=== PATIENT | female | born 1945 | race African-American/Black ===

== ENCOUNTER 2018-10-07 08:42 | Emergency (ER) | payer OTHER, SELFPAY ==
[2018-10-07 08:43] VITALS: BP 167/106; PULSE 76; RESP 16; TEMP 36.6; O2SAT 96; BMI 32.4
--- NOTE | 2018-10-07 08:55 | RAD_ITS ---
STUDY: X-RAY - RIGHT ANKLE REASON FOR EXAM: Female, 72 years old. Pain following a fall. TECHNIQUE: 3 view(s) of the ankle. COMPARISON: None. FINDINGS: Normal visualized distal tibia and fibula. Normal medial and lateral malleoli. Normal tibiotalar articulation and ankle mortise. Normal visualized talus and calcaneus. Degenerative changes of the distal tarsal bones. Soft tissue swelling. RAD/Ankle min 3 Views IMPRESSION: Degenerative changes. Soft tissue swelling. Electronically Signed: Hilario Donnelly, at 10:06 EDT , Service support ,
--- NOTE | 2018-10-07 08:55 | RAD_ITS ---
STUDY: X-RAY - RIGHT KNEE REASON FOR EXAM: Female, 72 years old. Pain following a fall. TECHNIQUE: 4 view(s) of the knee. COMPARISON: None. FINDINGS: Normal visualized distal femur. Normal visualized proximal tibia and fibula. Normal proximal tibiofibular articulation. There is severe degenerative arthrosis of the medial femorotibial compartment with severe joint space narrowing. Normal lateral femorotibial compartment. There is severe degenerative arthrosis of the patellofemoral articulation. Small joint effusion. RAD/Knee 4 or More Views IMPRESSION: Degenerative arthrosis. Small joint effusion. Electronically Signed: Hilario Donnelly, at 10:04 EDT , Service support ,
--- NOTE | 2018-10-07 09:04 | ED.VISSUMM ---
- ER Visit Summary Date of Service: 10/07/18 Chief Complaint: [Right leg injury] History of Present Illness: The patient is a 72 F [presents to the emergency department complaint of an injury to her right leg that occurred 2 days ago. Patient states that she was taking a basket of close down the steps when she tripped over a sheet and she stumbled trying to brace herself with her right leg. Patient did not actually fall down. Patient not complaining of continued pain in the back of her leg, knee, and ankle. Patient is able to ambulate. Patient states the pain is worse with sitting actually better when she is up and walking. She denies any head or neck pain. She denies any chest pain.] Physical Examination: [HEENT-PERRLA, EOMI. Cranial nerves II through XII grossly intact. TMs clear. Mucous membranes moist. No adenopathy. Cardiovascular-regular rate and rhythm without murmur or ectopy Lungs-clear to auscultation, chest wall stable without crepitus or subcu emphysema Abdomen-normoactive bowel sounds, soft, nontender, no rebound or rigidity, no peritoneal signs. Extremities-intact ?4, normal range of motion, normal pulses, atraumatic. Right knee-patient does have a small joint effusion noted. Ligamentously stable. Mild tenderness over the medial lateral joint lines. Patient does have some tenderness to the right hamstrings diffusely. Right ankle-patient has mild diffuse tenderness. No erythema or warmth noted. There is no ecchymosis or bruising. She is neurovascular intact.] Test Results: [X-rays of the right knee showed a small effusion and degenerative changes. X-rays of the right ankle show some soft tissue swelling and degenerative changes but no fractures.] Emergency Department Course and Treatment: [Patient was given an Jens wrap for her knee. Patient does not want an air splint. Patient does not feel like her knee is unstable and does not feel like it is going to give out.] Treatment Plan: [Patient will be given a prescription for OxyIR for pain. Follow-up with her primary care physician in 5 to 7 days. If symptoms do not improve or worsen she may need further imaging such as possibly MRI to evaluate for ligamentous or meniscal injury.] Disposition: [Discharged home in stable condition] Impression: [Right knee sprain Right ankle sprain] This note was generated with Dragon dictation software. It may contain incorrect words, spelling, and punctuation that were not noted in review of the chart prior to signing ED Disposition - Plan for ED Patient: Referrals: Kelsi Beach MD [Primary Care Provider] -
--- NOTE | 2018-10-07 10:28 | ED.DEP ---
ED Disposition - Plan for ED Patient: Instructions: ED Sprain Ankle W X Ray, ED Sprain Knee Prescriptions: Oxycodone [Oxyir] 5 mg PO Q4H PRN PRN 3 Days #10 tab PRN Reason: Pain Referrals: Kelsi Beach MD [Primary Care Provider] - 5-7 Days
[2018-10-07 10:53] VITALS: PULSE 71; RESP 16; O2SAT 98
== END 2018-10-07 10:55 | disposition home or self-care (01) ==
PROVIDERS: Emergency Provider Emergency Medicine; Family Provider Internal Medicine; PCP Internal Medicine
DX: S83.91XA Sprain of unspecified site of right knee, initial encounter (principal); S93.401A Sprain of unspecified ligament of right ankle, initial encounter; W18.09XA Striking against other object with subsequent fall, initial encounter; Y93.9 Activity, unspecified; Y92.89 Other specified places as the place of occurrence of the external cause; Y99.9 Unspecified external cause status
CPT/HCPCS: 73564; 73610; 99282

== ENCOUNTER → 2019-12-07 09:15 | Outpatient (CLI) | payer MEDICARE, SELFPAY ==
--- NOTE | 2019-12-07 09:20 | US_ITS ---
STUDY: ABDOMINAL ULTRASOUND - RIGHT UPPER QUADRANT REASON FOR VISIT: Female, 73 years old elevated liver enzymes TECHNIQUE: Ultrasound evaluation of the right upper quadrant was performed with real-time and static sahu-scale imaging. TECHNICAL QUALITY: Limited. Examination limited by bowel gas. COMPARISON: None. FINDINGS: Liver: The liver measures 15.9 cm. There is normal echogenicity of the liver. The bile ducts are within normal limits. There is hepatic color flow. The direction of portal flow is hepatopetal. There is no demonstrated mass lesion. Gallbladder: The patient is status post cholecystectomy. Common Bile Duct (C.B.D.): The common bile duct measures 10 mm. Pancreas: Normal size of the head, body and tail of the pancreas. There is normal echogenicity of the pancreas. There is no demonstrated pancreatic mass or cyst. Right Kidney: Normal size of the right kidney. The right kidney measures 9.9 cm. 1.5 The right cortex measures cm. There is no demonstrated renal mass or cyst. There is no right hydronephrosis. US/Liver IMPRESSION: Distended common bile measuring 10 mm. This may simply be related to patient''s age and cholecystectomy. Mild fatty liver. Electronically Signed: Leonides Contreras MD at 19:33 EDT , Service support ,
== END ==
PROVIDERS: PCP Internal Medicine; Referring Provider Nurse Practitioner; Visit Provider Nurse Practitioner
DX: R74.8 Abnormal levels of other serum enzymes (principal)
CPT/HCPCS: 76705

== ENCOUNTER → 2019-12-10 10:41 | Outpatient (CLI) | payer MEDICARE, SELFPAY ==
--- NOTE | 2019-12-10 10:42 | BI_ITS ---
MAMMOGRAPHY - BILATERAL SCREENING REASON FOR EXAM: Female, 73 years old. Routine annual screening examination. PERTINENT HISTORY: Non-contributory. TECHNIQUE: Digital bilateral breast misty (3D mammographic acquisition) in the CC and MLO projections. 2-D mediolateral oblique (MLO) and craniocaudad (CC) views of both breasts were obtained. CAD: Full Field Digital Mammography with Computer Added Detection was performed. COMPARISON: Comparison is made with prior examination dated 03/17/2014. FINDINGS: Breast Composition: There are scattered areas of fibroglandular density. There are no dominant masses or suspicious calcifications. Stable benign-appearing bilateral axillary lymph nodes. Stable appearance of the asymmetry of breast tissue with more breast tissue is seen in the retroareolar region of the left breast. Stable retroareolar thickening bilaterally. No other significant abnormalities are identified. There has been no significant change since the prior study. BI/SCREEN MAMM (CAD) W/MISTY BILAT IMPRESSION: Stable bilateral screening mammogram. Yearly follow-up mammogram recommended. (A) ASSESSMENT CATEGORY: BIRADS Category 2: Benign. A letter regarding these results will be sent to the patient by the facility within 30 days. Approximately 10% of breast cancers are not detected by mammography. A normal mammogram should not delay biopsy of a clinically suspicious abnormality. [id number] Electronically Signed: Hilario Donnelly, at 12:44 EDT , Service support ,
--- NOTE | 2019-12-10 10:46 | BD_ITS ---
STUDY: DUAL ENERGY X-RAY ABSORPTIOMETRY / DXA REASON FOR EXAM: Female, 73 years old. 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 COMPARISON: Comparison is made with prior examination of 03/17/2014. FINDINGS: Lumbar Spine (L1-L4): g/cm2 (1.195) / T-score (0.2) / Z-score (1.3) Findings are suggestive of normal bone density with a low fracture risk. Left Femur Total: g/cm2 (1.019) / T-score (0.1) / Z-score (0.7) Left Femoral Neck: g/cm2 (0.939) / T-score (-0.7) / Z-score (0.2) Right Femur Total: g/cm2 (1.012) / T-score (0.0) / Z-score (0.6) Right Femoral Neck: g/cm2 (1.020) / T-score (-0.1) / Z-score (0.7) The T-Scores on the most recent prior examination were: Lumbar Spine (L1-L4): There has been improvement of bone density since the previous examination. Left Femur Total: which represents a worsening of 4.6%. Right Femur Total: which represents an improvement of 1.1%. BD/Dexa Bone Density Study IMPRESSION: The patient is considered normal as outlined below according to World Luke Organization (WHO) criteria with a low fracture risk. There has been improvement of bone density since the previous examination. Reference Information: The T-score is the number of standard deviations above or below the standard which is normal for young adults at their peak bone mineral density. The World Health Organization (WHO) interprets the T-scores as follows: Above -1 Normal bone density Between -1 and -2.5 Osteopenia Equal to / or below -2.5 Osteoporosis As a practical clinical guideline, osteopenia may be graded as follows: Mild -1 through -1.5 Moderate -1.6 through -2.0 Severe -2.1 through -2.4 The Z-score is the number of standard deviations above or below age-matched controls. A Z-score of less than -1.5 would be considered abnormal. References: 1. NIH Osteoporosis and Related Bone Diseases http://www.osteo.org 2. International Society for Clinical Densitometry http://www.iscd.org 3. National Osteoporosis Foundation http://www.nof.org Electronically Signed: Hilario Donnelly, at 15:23 EDT , Service support ,
== END ==
PROVIDERS: PCP Internal Medicine; Referring Provider Nurse Practitioner; Visit Provider Nurse Practitioner
DX: Z12.31 Encounter for screening mammogram for malignant neoplasm of breast (principal); Z78.0 Asymptomatic menopausal state
CPT/HCPCS: 77063; 77067; 77080

== ENCOUNTER → 2020-04-20 12:04 | Outpatient (CLI) | payer MEDICARE, SELFPAY ==
[2020-04-15 13:22] VITALS: BMI 32.4
[2020-04-20 12:44] LABS: Potassium 4.4 mmol/L (3.5-5.1)
== END ==
PROVIDERS: PCP Internal Medicine; Visit Provider Nurse Practitioner
DX: E87.5 Hyperkalemia (principal)
CPT/HCPCS: 84132

== ENCOUNTER 2020-10-27 12:00 | Outpatient (RCR) | payer MEDICARE, SELFPAY ==
[2020-04-15 13:22] VITALS: BMI 32.4
--- NOTE | 2020-07-29 14:19 | HP.PTEVAL_ITS ---
Patient's Visit Information CHAUNCEY CURRIE is a 74 year old F referred to Physical Therapy by DIANN Green with a diagnosis of SCIATICA. Date of Evaluation: 07/29/20 Physical Therapist: Lala Malone, PT, Cert MDT - Visit Plan Frequency: 2-3x /Week Duration: 4-6 Weeks Plan: NO OVERHEAD PRESS. NO SUPINE LEG PRESS OR SHUTTLE LEG PRESS. US, POSTURE CORRECTION/STRENGTHENING, INSTRUCTION IN APPROPRIATE BODY MECHANICS AND ACTIVITY MODIFICATIONS. DLS STARTING WITH A NEUTRAL SPINE PROGRESSING ROM TOLERATED. ALISON LE ROM, STRETCHING AND STRENGTHENING. HEP INSTRUCTION. - Subjective Work/Leisure: RETIRED. Disability: NO. Present symptoms: RIGHT LOW BACK, RIGHT BUTTOCK, R THIGH AND CALF. LEFT LEG AND ANKLE ALSO GETS TIGHT. RIGHT LE PAIN, NUMBNESS AND TINGLING TO THE FOOT AND TOES. Present since: NOVEMBER 2019. Pain Scale: WORST 10/10, LEAST 1/10. Currently: 05/22. Commenced as a result of: NO APPARENT REASON OTHER THAN PHYSICAL ACTIVITY LIKE GARDENING. LIFTING HEAVY SOIL AND POTTED PLANTS. ALSO PACKING TO MOVE FEB 11 2020. Symptoms at onset: ACHY LOW BACK. Worse: TIGHT SOCK, SOMETIMES SHEET, GOING UP AND DOWN STEPS, LIFTING, STRETCHING, TRYING TO REMOVE WALLPAPER, ANY OVER-HEAD REACHING, SITTING IN CERTAIN CHAIRS. WALKING. GROCERY SHOPPING. Better: TYLONOL, HOT SHOWER, ICE PACK, CHANGE OF POSITION, INJECTION BY RODRIGO HAHN Saturday07/26/20 - TORODOL - HELPED A LOT. Disturbed sleep: YES. Previous history/Previous treatment: UNREMARKABLE PRIOR TO NOVEMBER 2019. Treatment this episode: SHOT OF TORODOL SATURDAY, PREDNISONE X 3 - ON 3RD ROUND NOW, FLEXERIL, TYLONOL, PT CONSULT. Coughing/sneezing/straining: NEGATIVE. Gait: UNEVEN STRIDE, DECREASED CADANCE, TIME LIMITED, DISTANCE LIMITED, I HOBBLE. I CAN'T WALK AND THAT IS ONE OF MY MOST FAVORITE FORMS OF EX. Difficulty initiating urinatin: NO. Accidents: NO. Unexplained weight loss: NO. Imaging: STUDY: X-RAY - LUMBAR SPINE. REASON FOR EXAM: Female, 74 years old. LBP WITH RLE PARESTHESIAS. TECHNIQUE: 2 view(s) of the lumbar spine were obtained. COMPARISON: None. . FINDINGS: Normal lumbar lordosis. There is no substantial scoliosis. There is a. normal alignment of the vertebrae. There is multilevel endplate spondylosis of the lumbar vertebrae. There is. multi-level degenerative disc disease with multi- level disc space. narrowing. Facet joint osteoarthritis. There is atherosclerotic calcification of the abdominal aorta without a. demonstrated aneurysm. . RAD/Lumbar Spine 2 or 3 Views. IMPRESSION: Degenerative changes of the spine, as detailed above. . Electronically Signed: Hilario Donnelly,. at 14:06 EST. PMH: HTN. Recent major surgery: NONE - Objective Sitting/Standing Posture: POOR. Lordosis: REDUCED. Lateral shift: NO. Relevant shift: N/A. Active Correction of posture: WORSE. Other Observations: INDEP GAIT INTO PT WITHOUT ANY ASSISTIVE DEVICES BUT DECREASED CADANCE, DECREASED ALISON STRIDE LENGTH AND LIMP ON RIGHT LE. Motor deficit: ALISON LE'S GROSSLY 5/5 WITH MMT'ING EXCEPT HIPS GRADED 4/5. Sensory deficit: ALISON LE LIGHT TOUCH SENSATION IS INTACT AND SYMMETRICAL WITH TESTING TODAY. ROM deficit: TIGHT ALISON LE HIP FLEXORS, HS'S AND GASTROC SOLEUS COMPLEX'S. Reflexes: UNABLE TO ELICIT ALISON LE'S. Dural Signs: NEGATIVE ALISON LE'S. Lumbar mvmt loss: flex - NIL. ext - RAFAEL. R SG - MIN. L SG - MIN. Core strength: POOR. Palpation: NO ACUTE TENDERNESS WITH PALPATION OF LUMBAR SPINE, SACRAL REGION OR ALISON HIPS. TREATMENT: NEUROMUSCULAR REEDUCATION - RETRAINING OF MVMT AND POSTURE FOR SITTING, LYING AND STANDING ACTIVITIES. - Goals Goal 1:: DECREASE C/O LOW BACK AND ALISON LE SX'S. Goal Time Frame: 4-6 Weeks Goal 2:: IMPROVE LIFTING, WALKING, SITTING, STANDING, SLEEP, SOCIAL LIFE, TRAVEL AND HOMEMAKING FUNCTION. Goal Time Frame: 4-6 Weeks Goal 3:: INSTRUCT IN PROPHYLAXIS Goal Time Frame: 4-6 Weeks - Anticipated Interventions Patient/Client Instruction: Educate patient on: Condition, Plan of Care, Risk Factors, Benefits of Fitness Program For the Purpose of:: To improve self management Therapeutic Exercise to Include: Strength training, Body mechanics, Postural training, Flexibilty training, Neuromotor development, In an aquatic setting, Dynamic Lumbar Stabilization For the Purpose of:: To decrease pain, To improve muscle performance and motor function, To increase tolerance to activity/condition/position, To improve ability of physical actions for home/community/work/leisure Cryotherapy (ice pack, ice massage): Yes Thermo therapy (hot pack): Yes Ultrasound (thermal/non thermal): Yes For the Purpose of:: To decrease pain, To improve nutrient delivery to tissue Thank you for the opportunity to evaluate your patient. For Medicare and Medicare HMO plans, please review the plan of care and approve it. It will need to be FAXED BACK to us at [phone] for Medicare purposes. For Medicare only, by signing this I certify the plan of care. Please let me know if there are questions or concerns regarding this plan of care. Physician Signature: Date:
--- NOTE | 2020-08-21 14:40 | HP.PTREVAL_ITS ---
Kell Ye, HEALTHCARE SALES REPRESENTATIVE-C, It has been my pleasure to treat CHAUNCEY CURRIE over the last 10 visits for SCIATICA. Please see the progress note below for an update on the physical therapy plan of care! Subjective: PATIENT REPORTS THE EX'S ARE HELPING A GREAT DEAL. PATIENT REPORTS SHE NOW HAS LIMITED PAIN. STATES LONG SHE IS CAREFUL SHE CAN CONTROL THE PAIN. FREQUENT CHANGE OF ACTIVITY HELPS. SLEEPING BETTER. PATIENT REPORTS SHE CAN DO ADL'S BETTER NOW LIKE GETTING IN AND OUT OF BED, CAR AND CHAIR. BRACING IN CORE MUSCLES WITH MOVEMENT HELPS. PATIENT REPORTS SHE IS JUST STARTING TO TURN THE CORNER AND SHE DOES NOT YET HAVE THE CONFIDENCE TO CONTINUE ON HER OWN. Objective/Function: PATIENT WAS SEEN TODAY FOR RE-ASSESSMENT OF PROGRESS TOWARD THE SET PT GOALS AND THE NEED FOR FURTHER PHYSICAL THERAPY VS READINESS FOR DISCHARGE. SHE IS A GOOD CANDIDATE TO CONTINUE PT BASED ON PROGRESS MADE AND ROOM FOR FURTHER IMPROVEMENT. PATIENT IS AGREEABLE. UPON EXAM TODAY: INDEP GAIT INTO PT WITHOUT ANY ASSISTIVE DEVICES BUT DECREASED CADANCE, DECREASED ALISON STRIDE LENGTH AND LIMP ON RIGHT LE. Motor deficit: ALISON LE'S GROSSLY 5/5 WITH MMT'ING EXCEPT HIPS GRADED 4/5. Sensory deficit: ALISON LE LIGHT TOUCH SENSATION IS INTACT AND SYMMETRICAL WITH TESTING TODAY. ROM deficit: TIGHT ALISON LE HIP FLEXORS, HS'S AND GASTROC SOLEUS COMPLEX'S. Dural Signs: NEGATIVE ALISON LE'S. Lumbar mvmt loss: flex - NIL. ext - MOD. R SG - MIN. L SG - MIN. Core strength: POOR. Palpation: NO ACUTE TENDERNESS WITH PALPATION OF LUMBAR SPINE, SACRAL REGION OR ALISON HIPS. Plan Plan: CONTINUE PT. NO OVERHEAD PRESS. NO SUPINE LEG PRESS OR SHUTTLE LEG PRESS. US, POSTURE CORRECTION/STRENGTHENING, INSTRUCTION IN APPROPRIATE BODY MECHANICS AND ACTIVITY MODIFICATIONS. DLS STARTING WITH A NEUTRAL SPINE PROGRESSING ROM TOLERATED. ALISON LE ROM, STRETCHING AND STRENGTHENING. HEP INSTRUCTION. Goals Goal 1:: DECREASE C/O LOW BACK AND ALISON LE SX'S. Goal Time Frame: 4-6 Weeks Goal Progress: Progressing Goal 2:: IMPROVE LIFTING, WALKING, SITTING, STANDING, SLEEP, SOCIAL LIFE, TRAVEL AND HOMEMAKING FUNCTION. Goal Time Frame: 4-6 Weeks Goal Progress: Progressing Goal 3:: INSTRUCT IN PROPHYLAXIS Goal Time Frame: 4-6 Weeks Goal Progress: Progressing Anticipated Interventions Patient/Client Instruction: Educate patient on: Condition, Plan of Care, Risk Factors, Benefits of Fitness Program For the Purpose of:: To improve self management Therapeutic Exercise to Include: Strength training, Body mechanics, Postural training, Flexibilty training, Neuromotor development, In an aquatic setting, Dynamic Lumbar Stabilization For the Purpose of:: To decrease pain, To improve muscle performance and motor function, To increase tolerance to activity/condition/position, To improve ability of physical actions for home/community/work/leisure Cryotherapy (ice pack, ice massage): Yes Thermo therapy (hot pack): Yes Ultrasound (thermal/non thermal): Yes For the Purpose of:: To decrease pain, To improve nutrient delivery to tissue Please do not hesitate to contact me at [phone] by phone or if you have questions or concerns regarding this new plan of care! Sincerely, Lala Malone, PT, Cert MDT
--- NOTE | 2020-09-23 12:47 | HP.PTREVAL_ITS ---
Kell Ye, SUPERVISOR METAL PLACING-C, It has been my pleasure to treat CHAUNCEY CURRIE over the last 20 visits for SCIATICA. Please see the progress note below for an update on the physical therapy plan of care! Subjective: PATIENT REPORTS THAT SHE VENTURES OUT MORE AND ATTEMPTS TO DO MORE SHE REALIZES THIS IS GOING TO BE A SLOW PROCESS. STATES SHE FEELS 10 TIMES BETTER THAN BEFORE SHE STARTED PT THOUGH. PATIENT REPORTS HER BALANCE IS BETTER AND SHE ISN'T LIMPING WHEN SHE WALKS. PATIENT REPORTS SHE IS GETTING STRONGER. STATES SHE INS'T HAVING PAIN IN HER BACK OR LEG BUT SHE DOES FEEL GENERALIZED STIFFNESS IN THE MORNINGS THAT SHE DIDN'T HAVE A YEAR AGO AND SHE DOES STILL FEEL PULLING IN HER LOW BACK IF SHE SITS TOO LONG AND WITH WALKING. Objective/Function: PATIENT WAS SEEN TODAY FOR RE-ASSESSMENT OF PROGRESS TOWARD THE SET PT GOALS AND THE NEED FOR FURTHER PHYSICAL THERAPY VS READINESS FOR DISCHARGE. PATIENT HAS COME A LONG WAY SINCE INITIAL EVAL AND IS A GOOD CANDIDATE TO CONTINUE PT BASED ON PROGRESS MADE AND ROOM FOR FURTHER IMPROVEMENT. SHE IS PROGRESSING SLOWLY. Lumbar mvmt loss: flex - NIL. ext - MOD. R SG - MIN. L SG - MIN. Core strength: POOR Plan Plan: CONTINUE PT 2X'S A WK X 5 WKS. PROGRESS TOLERATED IN GYM. NO OVERHEAD PRESS. NO SUPINE LEG PRESS OR SHUTTLE LEG PRESS. POSTURE CORRECTION/STRENGTHENING, INSTRUCTION IN APPROPRIATE BODY MECHANICS AND ACTIVITY MODIFICATIONS. DLS STARTING WITH A NEUTRAL SPINE PROGRESSING ROM TOLERATED. ALISON LE ROM, STRETCHING AND STRENGTHENING. HEP INSTRUCTION. Goals Goal 1:: DECREASE C/O LOW BACK AND ALISON LE SX'S. Goal Time Frame: 4-6 Weeks Goal Progress: Progressing Goal 2:: IMPROVE LIFTING, WALKING, SITTING, STANDING, SLEEP, SOCIAL LIFE, TRAVEL AND HOMEMAKING FUNCTION. Goal Time Frame: 4-6 Weeks Goal Progress: Progressing Goal 3:: INSTRUCT IN PROPHYLAXIS Goal Time Frame: 4-6 Weeks Goal Progress: Progressing Anticipated Interventions Patient/Client Instruction: Educate patient on: Condition, Plan of Care, Risk Factors, Benefits of Fitness Program For the Purpose of:: To improve self management Therapeutic Exercise to Include: Strength training, Body mechanics, Postural training, Flexibilty training, Neuromotor development, In an aquatic setting, Dynamic Lumbar Stabilization For the Purpose of:: To decrease pain, To improve muscle performance and motor function, To increase tolerance to activity/condition/position, To improve ability of physical actions for home/community/work/leisure Cryotherapy (ice pack, ice massage): Yes Thermo therapy (hot pack): Yes Ultrasound (thermal/non thermal): Yes For the Purpose of:: To decrease pain, To improve nutrient delivery to tissue Please do not hesitate to contact me at [phone] by phone or if you have questions or concerns regarding this new plan of care! Sincerely, Lala Malone, PT, Cert MDT
--- NOTE | 2020-10-27 12:51 | HP.PTDCSUM ---
It has been my pleasure to treat CHAUNCEY CURRIE referred by DIANN Green, with the diagnosis of SCIATICA for a total of 29 visit(s). Discharge Date: Please see the following information for a summary of their discharge status. Subjective: PATIENT HAS BEEN UNPACKING BOXES AND SETTING UP HER NEW HOME. THIS HAS BEEN ON HOLD SINCE SHE HURT HER BACK. WORK IN THE GARDEN NOW TOO. PATIENT REPORTS SHE IS BEING CAREFUL TO USE GOOD BODY MECHANICS AND RESTING BETWEEN ACTIVITIES. PATIENT REPORTS SHE IS GETTING BETTER WITH [facility] GYM EX'S BUT SET UP OF SOME OF THE MACHINES IS A BIT TRICKY. PATIENT REPORTS SHE HAS BEEN RELUCTANT TO COME IN TO EX ON HER OWN YET BECAUSE SHE IS UNPACKING AND DOESN'T WANT TO OVER-DO-IT. PATIENT REPORTS SHE HAS A GOOD ROUTINE WITH HER HEP AND DUE TO UPCOMING VACATION PLANS SHE WILL NOT BE ABLE TO START [facility] GYM EX UNTIL DECEMBER. RIGHT BUTTOCK Pain Intensity (Out of 10): 0 dorsum of R foot Pain Intensity (Out of 10): 1 R LOW BACK Pain Intensity (Out of 10): 0 % Improvement: 85 Objective/Function: PATIENT WAS SEEN TODAY FOR RE-ASSESSMENT OF PROGRESS TOWARD THE SET PT GOALS AND THE NEED FOR FURTHER PHYSICAL THERAPY VS READINESS FOR DISCHARGE. PATIENT HAS COME A LONG WAY SINCE INITIAL EVAL AND IS A GOOD CANDIDATE TO CONTINUE [facility] HOME AND GYM EX'S AT THIS TIME. SHE DOES STILL LACK SOME CONFIDENCE IN HER ABILITY TO DO SO BUT IS AGREEABLE TO GIVE IT A TRY. ALL PT GOALS HAVE BEEN MET. SHE IS CONTINUING TO PROGRESS SLOWLY. Lumbar mvmt loss: flex - NIL. ext - MOD. R SG - MIN. L SG - MIN. PATIENT DENIES PAIN WITH LUMBAR ROM TESTING ALL PLANES TODAY. SHE IS INDEP WITH HOME AND GYM EX PROGRAMS. Goal 1:: DECREASE C/O LOW BACK AND ALISON LE SX'S. Goal Progress: Goal Met Goal 2:: IMPROVE LIFTING, WALKING, SITTING, STANDING, SLEEP, SOCIAL LIFE, TRAVEL AND HOMEMAKING FUNCTION. Goal Progress: Goal Met Goal 3:: INSTRUCT IN PROPHYLAXIS Goal Progress: Goal Met Plan: D/C TO [facility] HOME AND GGYM PROGRAMS. PATIENT AGREEABLE. If there are questions or concerns regarding this patient's physical therapy, please feel free to call me at [phone]. Thank you for the referral of this patient. Sincerely, Lala Malone PT, Cert MDT
== END 2020-10-27 19:00 | disposition home or self-care (01) ==
LOC: PT 12:00
PROVIDERS: PCP Internal Medicine; Referring Provider Nurse Practitioner; Visit Provider Nurse Practitioner
DX: M54.30 Sciatica, unspecified side (principal)
CPT/HCPCS: 97035; 97110; 97112; 97162; 97164; 97530

== ENCOUNTER → 2021-01-02 08:07 | Outpatient (CLI) | payer MEDICARE, OTHER, SELFPAY ==
--- NOTE | 2021-01-02 08:54 | US_ITS ---
STUDY: ABDOMINAL ULTRASOUND - RIGHT UPPER QUADRANT REASON FOR VISIT: Female, 75 years old ELEVATED LIVER ENZYMES TECHNIQUE: Ultrasound evaluation of the right upper quadrant was performed with real-time and static sahu-scale imaging. TECHNICAL QUALITY: Adequate. COMPARISON: Comparison is made with prior examination dated 12/07/2019. FINDINGS: Liver: The liver is mildly enlarged and measures 18.1 cm. There is increased echogenicity consistent with fatty infiltration. The bile ducts are within normal limits. There is hepatic color flow. The direction of portal flow is hepatopetal. There is no demonstrated mass lesion. Gallbladder: The patient is status post cholecystectomy. Common Bile Duct (C.B.D.): The common bile duct measures 10 mm. Pancreas: Normal size of the head, body and tail of the pancreas. There is normal echogenicity of the pancreas. There is no demonstrated pancreatic mass or cyst. Right Kidney: Normal size of the right kidney. The right kidney measures 11.1 cm x 5.7 cm x 5.8 cm. Normal renal cortex. The right cortex measures 1.6 cm. There is no demonstrated renal mass or cyst. There is no right hydronephrosis. US/Liver IMPRESSION: Mild hepatomegaly and fatty infiltration of the liver. The patient is status post cholecystectomy with mild dilatation of the common bile duct. Stable examination. Electronically Signed: Hilario Donnelly MD at 11:12 EDT , Service support ,
== END ==
PROVIDERS: PCP Internal Medicine; Referring Provider Nurse Practitioner; Visit Provider Nurse Practitioner
DX: R74.8 Abnormal levels of other serum enzymes (principal)
CPT/HCPCS: 76705

== ENCOUNTER 2024-01-21 15:52 | Emergency (ER) | payer MEDICARE, OTHER, SELFPAY ==
[2024-01-21 15:53] VITALS: BP 151/99; PULSE 86; RESP 18; TEMP 36.8; O2SAT 96; BMI 29.0
--- NOTE | 2024-01-21 16:04 | CT_ITS ---
STUDY: CT BRAIN WITHOUT CONTRAST REASON FOR EXAM: Female, 78 years old. Head injury RADIATION DOSAGE (If Supplied By Facility): CTDIvol = ( 44.99 ) mGy, DLP = ( 829.85 ) mGycm TECHNIQUE: Transaxial CT imaging of the brain was performed without administration of intravenous contrast material. Individualized dose optimization techniques were used for this CT. COMPARISON: January 23, 2008 FINDINGS: Normal soft tissue structures. Normal calvarium. Calcific plaquing of the cavernous carotids. Normal size ventricles and extra-axial spaces for the patient''s age. Minor periventricular white matter ischemic changes.. Normal basal ganglia and thalami. Normal brainstem. Normal cerebellum. There is no intracranial hemorrhage. There are no findings of an acute ischemic infarction. Normal visualized paranasal sinuses. Postsurgical changes of the orbits CT/Brain/Head without Contrast IMPRESSION: Minor periventricular white matter ischemic changes. No evidence for acute intracranial bleed. Electronically Signed: Paul Ramsay MD at 16:59 EDT ,
--- NOTE | 2024-01-21 16:07 | EDS_ITS ---
HPI History of Present Illness Chief Complaint: Head Injury Narrative Narrative: Chief complaint and HPI: Head injury. 78-year-old female with history of hypertension on ASA presents for evaluation of head injury. Patient states onset of injury was prior to arrival. Patient was outside cleaning out her trash can when she tripped and fell. She was in the grass. Fell mostly on her left side. Hit her right forehead onto the trash can lid. Has a laceration to the right forehead. Denies LOC. Denies blurry vision, lightheadedness, syncope, headache, facial pain, neck pain, chest pain, shortness of breath, abdominal pain, nausea, vomiting, numbness/tingling. Denies injury elsewhere. Unsure when her last tetanus was Review of systems: See HPI Medications: As listed on the chart Allergies: As listed on the chart PFSH: Per chart Vital signs: As listed on the chart. Reviewed. Physical exam: Gen: A&O x3, NAD Head: Normocephalic, 1.5 cm laceration to the right frontal forehead with mild active bleeding-hematoma in this area as well Eyes: No sclera icterus, conjunctiva clear, PERRL, EOMI, no raccoon eyes or Villalba sign ENT: TMs clear BL, moist mucous membranes, no swelling/lacerations/blood in the mouth or the nares, No nasal septal hematoma, no facial tenderness Neck: Trachea midline, No JVD, Nontender diffusely or midline, full range of motion CV: RRR, no murmurs, no chest wall TTP Resp: Lungs CTA BL, no w/r/c GI: Abd soft, non-distended, non-tender, no r/r/g Musc: Full ROM, no deformity, no spinal TTP, no kae step-offs Skin: Warm, dry, intact Neuro: Alert, oriented, grossly intact, sensation intact, GCS 15 Psych: Cooperative, appropriate mood and affect [facility] Medical History (Updated 01/21/24 @ 16:[address] Levi Cordero DO) Knee pain Hay fever HTN (hypertension) Home Medications ?Medication ?Instructions ?Recorded ?Last Taken ?Type aspirin 81 mg tablet,delayed 81 mg PO DAILY 10/07/18 Unknown History release loratadine 10 mg capsule 10 mg PO DAILY 10/07/18 Unknown History cyclobenzaprine 10 mg tablet 10 mg PO TID PRN muscle spasm #20 04/15/20 Unknown Rx tabs metoprolol tartrate 50 mg tablet 50 mg PO 04/15/20 Unknown History nifedipine 30 mg tablet,extended 30 mg PO 04/15/20 Unknown History release 24 hr prednisone 10 mg tablet 10 mg PO DAILY #30 tabs 04/15/20 Unknown Rx Allergy/AdvReac Type Severity Reaction Status Date / Time acetaminophen (From Allergy Itching Verified 01/21/24 15:53 Darvocet-N) propoxyphene (From Allergy Itching Verified 01/21/24 15:53 Darvocet-N) Social History (Updated 04/15/20 @ 15:03 by Chang CANAS, PA) Smoking Status: Never smoker EXAM Physical Exam Const Vital Signs: 01/21/24 15:53 01/21/24 15:53 Temperature 98.3 F Temperature Source Temporal Pulse Rate 86 Respiratory Rate 18 Respiratory Effort Normal Non-Labored Respiratory Depth Normal Respiratory Pattern Normal Blood Pressure 151/99 H Blood Pressure Mean 116 Pulse Ox 96 Oxygen Delivery Method Room Air MDM MDM MDM Narrative Medical decision making narrative: 78-year-old female presents for evaluation of head injury. She has a right frontal hematoma and laceration. Laceration will need repaired. Tetanus updated. CT head ordered to assess for intracranial abnormality. Patient is nontender in the neck, has full range of motion, no distracting injuries, GCS 15. CT neck not needed at this time per [facility]. Patient tolerated laceration repair well. CT head without any acute traumatic injury. Patient stable to discharge home. She was given education that sutures need to be removed in 5 to 7 days. Laceration Repair Indication: Laceration Location: 1.5 cm right forehead laceration Consent: Risks, benefits, and alternatives discussed with patient and consent obtained Procedure: A time out was performed. The area was prepped and draped in the usual sterile fashion. Local anesthesia was achieved using 1% Lidocaine with epi nephrine. The wound was copiously irrigated. 6 sutures were placed using 6-0 Ethilon in an interrupted fashion. The estimated blood loss was minimal. A dressing was applied to the area with Bacitracin. The patient tolerated the procedure well without complications. Foreign Material: None Debridement: None Follow-up: Anticipatory guidance, as well as standard post-procedure care, was explained. Return precautions are given. Follow-up visit set for suture removal and evaluation of the laceration. Impression: 1. Closed head injury 2. Mechanical fall 3. 1.5 cm right forehead laceration Radiography Diagnostic Testing: Clinical Impression(s) from Imaging Studies Brain CT 01/21/24 16:04 IMPRESSION: Minor periventricular white matter ischemic changes. No evidence for acute intracranial bleed. Electronically Signed: Paul Ramsay MD at 16:59 EDT , Discharge Plan Triage Chief Complaint: Head Injury ED Provider: Levi Cordero Dx/Rx/DC Orders Clinical Impression: Closed head injury, Accident due to mechanical fall without injury, Laceration Instructions: ED Laceration, All Closures Prescriptions: No Action metoprolol tartrate 50 mg tablet 50 mg PO nifedipine 30 mg tablet extended release 24hr 30 mg PO prednisone 10 mg tablet 10 mg PO DAILY Qty: 30 0RF Rx Instructions: 4 tablets daily for 3 days, then 3 tablets daily for 3 days, then 2 tablets daily for 3 days, then 1 tablet daily for 3 days cyclobenzaprine 10 mg tablet 10 mg PO TID PRN (Reason: muscle spasm) Qty: 20 0RF aspirin 81 MG tablet,delayed release (DR/EC) 81 mg PO DAILY loratadine 10 MG capsule 10 mg PO DAILY Stand Alone Forms: ED Work / School Excuse Primary Care Provider: Kelsi Beach Referrals: Kelsi Beach MD [Primary Care Provider] - 3-5 Days Activity Restrictions/Additional Instructions: Sutures need to be removed in 5 to 7 days. No hankins, lakes, swimming pools, hot tubs until fully healed. Monitor for signs of infection Print Language: British Disposition Disposition: Home, Self Care Discharge Date/Time: 01/21/24 17:22
[2024-01-21] MEDS: BACITRACIN 15 GM Tube 1 APPLIC TOPICAL (16:19)
[2024-01-21] MEDS: Diphth,Pertuss(Acell),Tet Vac 0.5 ML Vial IM (16:19)
[2024-01-21] MEDS: Lidocaine 1% /Epi 1:100 (20ml) 20 ML Vial INFILT (16:19)
[2024-01-21 17:18] VITALS: BP 144/71; PULSE 84; RESP 16; TEMP 36.7; O2SAT 99
== END 2024-01-21 17:22 | disposition home or self-care (01) ==
PROVIDERS: Emergency Provider Surgery; PCP Internal Medicine; Visit Provider Surgery
DX: S01.81XA Laceration without foreign body of other part of head, initial encounter (principal); I10 Essential (primary) hypertension; Z23 Encounter for immunization; W01.198A Fall on same level from slipping, tripping and stumbling with subsequent striking against other object, initial encounter; Y92.014 Private driveway to single-family (private) house as the place of occurrence of the external cause
CPT/HCPCS: 12011; 70450; 90471; 90715; 99283

== ENCOUNTER → 2024-02-18 | Outpatient (CLI) | payer MEDICARE, OTHER, SELFPAY ==
[2024-02-18 12:26] LABS: Absolute Lymphocyte Count 1.46 X10^3/uL (0.83-4.51); Basophil# 0.04 X10^3/uL; Basophil% 0.5 % (0-1); Eosinophil# 0.23 X10^3/uL; Eosinophils% 3.2 % (0-5); Hematocrit 36.3 % (37-47); Hemoglobin 11.8 g/dL (12.0-15.0); Lymphocyte # 1.46 X10^3/ul (0.83-4.51); Mean Corp Hgb Conc 32.5 g/dL (32-36); Mean Corpuscular Volume 107.7 fL (81-99); Mean Platelet Vol. 9.6 fl (6.2-12.0); Monocyte# 0.56 X10^3/uL; Monocyte% 7.7 % (0-10); NRBC Flagged by Analyzer 0 % (0-5); Neutrophil # 4.97 X10^3/uL (2.7-7.7); Neutrophil % 68.2 % (47-70); Platelet Count 236 K/mm3 (150-450); RBC Distribution Width CV 14.4 % (11.6-14.6); RBC Distribution Width SD 56.8 fl (35.1-43.9); Red Blood Count 3.37 M/mm3 (4.2-5.4); White Blood Count 7.3 K/mm3 (4.4-11.0)
[2024-02-18 12:59] LABS: Vitamin D,25 Hydroxy 64.3 ng/mL
[2024-02-18 13:08] LABS: ALB/GLOB Ratio 0.8 RATIO (0.9-2.4); AST(SGOT) 36 U/L (15-37); Alanine Aminotransfer ALT/SGPT 29 U/L (13-56); Albumin, Serum 3.7 g/dL (3.2-5.0); Alkaline Phosphatase 87 U/L (45-117); Anion Gap 9 (5-15); BUN 9 mg/dL (7-18); BUN/Creat Ratio 8.8 RATIO (10-20); Calcium,Total 9.7 mg/dL (8.5-10.1); Chloride 106 mmol/L (98-107); Cholesterol 170 mg/dL (200); Creatinine, Serum 1.02 mg/dL (0.55-1.02); EST Glomerular Filtration Rate 56 mL/min (>60); Est Glom Filt Rate - Afr Amer 68 mL/min (>60); Globulin 4.7 g/dL (2.2-4.2); Glucose 110 mg/dL (74-106); High Density Lipoprotein 88 mg/dL; Potassium 3.9 mmol/L (3.5-5.1); Protein, Total 8.4 g/dL (6.4-8.2); Sodium Level 139 mmol/L (136-145); Triglycerides 73 mg/dL; Very Low Density Lipoprotein 15 mg/dL (5-40)
[2024-02-18 13:17] LABS: Color, Urine Yellow (Yellow); Glucose, Dipstick Normal (Normal); Ketone-Dipstick Negative (Negative); Leukocyte Esterase-Dipstick Negative /ul (Negative); Nitrite-Dipstick Positive (Negative); Occult Blood-Urine Negative /ul (Negative); Protein-Dipstick 30 mg/dl (Negative); Urine Bilirubin Dipstick Negative (Negative); Urine Clarity Sl. Cloudy (Clear); Urine Urobilinogen 1 mg/dl (Normal)
== END | disposition home or self-care (01) ==
PROVIDERS: PCP Internal Medicine; Referring Provider Nurse Practitioner Family; Visit Provider Nurse Practitioner Family
DX: I11.9 Hypertensive heart disease without heart failure (principal); E55.9 Vitamin D deficiency, unspecified; Z12.11 Encounter for screening for malignant neoplasm of colon
CPT/HCPCS: 36415; 80053; 80061; 81002; 82306; 84443; 85025